=== PATIENT | female | born 1975 | race Two or more races ===

== ENCOUNTER 2024-12-25 09:20 | Day surgery (SDC) | payer MEDICAID ==
[2024-12-20 12:56] LABS: Hemoglobin 13.9 g/dL (12.2-16.2); Nucleated Red Blood Cells % 0.1 %
[2024-12-20 12:58] LABS: Hematocrit 42.5 % (36.0-46.0); Mean Corpuscular Hemoglobin 24.2 pg (28.0-32.0); Mean Corpuscular Volume 74.0 fL (80.0-100.0)
[2024-12-20 13:36] LABS: INR 1.03 (0.9-1.15); Partial Thromboplastin Time 29.6 SEC (24.5-34.5); Prothrombin Time 10.9 sec (9.3-11.8)
[2024-12-20 13:58] LABS: Alanine Aminotransferase 14 U/L (7-40); Alkaline Phosphatase 63 U/L (46-116); Anion Gap 11 (5-15); BUN/Creatinine Ratio 14.3 (10.0-20.0); Blood Urea Nitrogen 13 mg/dL (9-23); Calcium 9.6 mg/dL (8.7-10.4); Carbon Dioxide 28 mmol/L (20-31); Chloride 100 mmol/L (98-107); Glucose 90 mg/dL (74-106); Potassium 4.1 mmol/L (3.5-5.1); Sodium 139 mmol/L (136-145)
[2024-12-20 13:59] LABS: Bilirubin, Total 0.6 mg/dL (0.2-1.0)
[2024-12-20 14:00] LABS: Albumin 4.9 g/dL (3.2-4.8); Total Protein 8.3 g/dL (5.7-8.2)
[2024-12-20 15:11] LABS: Urine Protein, UAD Negative (Negative)
[~2024-12-25] VITALS: Ht 152.4 cm; Wt 42.6 kg
[~2024-12-25 09:20] MED LIST: ALPR0.5T PO; HYDR50CA2 PO; ZOLP10TA PO
[2024-12-25] MEDS ORDERED: PROPOFOL 10 MG/ML 20 ML IV ONE (10:34)
[2024-12-25] MEDS ORDERED: LIDOCAINE 1% INJ PF 5ML AMP ONE (10:34)
[2024-12-25] MEDS ORDERED: ONDANSETRON HCL 4 MG/2 ML VIAL ONE (10:34)
[2024-12-25] MEDS ORDERED: MIDAZOLAM HCL 2MG/2ML 2ml VIAL (1mg/ml) ONE (10:34)
[2024-12-25] MEDS ORDERED: fentaNYL CITRATE 100 MCG/2 ML VL ONE (10:34)
[2024-12-25] MEDS ORDERED: SODIUM CHLORIDE LOCK 10 ML ONE (10:34)
[2024-12-25] MEDS ORDERED: MORPHINE SULFATE 4 MG/ML SYR/VIAL IV PRN (11:00)
[2024-12-25] MEDS ORDERED: MORPHINE SULFATE INJ 2 MG/ml SYRG IV PRN (11:00)
[2024-12-25] MEDS ORDERED: KETOROLAC TROMETH 30 MG/ML 1ML VIAL IV ONE (11:00)
[2024-12-25] MEDS ORDERED: HYDROmorphone HCL 2 MG/ML VL/or syr IV PRN ×2 (11:00)
[2024-12-25] MEDS ORDERED: METOCLOPRAMIDE HCL 5MG/ml INJ 2ml VIAL IV PRN (11:00)
[2024-12-25] MEDS: ceFAZolin 2 GM/D5W50ml 50 ML IV ONE (11:15)
[2024-12-25] MEDS: LIDOCAINE 1% HCL (LOCAL ANESTH.) INJ 20ML MDV ONE (11:21)
[2024-12-25 11:36] VITALS: PULSE 56; RESP 56; TEMP 98.6; O2SAT 100
--- NOTE | 2024-12-25 11:39 | DVHOP2 ---
Operative Report - 2 Report Details Date: 12/25/24 Preop Diagnosis: 1. Right foot bunion 2. Right foot pain Postop Diagnosis: Same as preop Surgeon: Abelino Joshi MD Anesthesiologist: See anesthesia Anesthesia: Mac Implant: 6 2 K-wire Consent: The patient was informed of the risks and benefits of the procedure. These include but are not limited to complications of anesthesia, postoperative infection, incomplete relief of symptoms, recurrence of symptoms, damage to blood vessels, nerves and tendons, deep venous thrombosis, pulmonary embolism an d possible need for repeat surgery in the future. Complications: None Estimated Blood Loss: Minimal Fluids: See anesthesia Findings: Consistent with diagnosis Indications for Surgery: Right foot pain Name of Procedure Performed 1. Right foot MIS bunion (99582) Procedure Details Procedure Details: PRE-PROCEDURE INFORMATION: In the pre-op holding area, the extremity to be operated on was clearly marked and the patient verified correct laterality of the marking. The patient was transferred to the OR table and placed in a supine position. A timeout was performed in which identification of the correct carole ent, procedure, location, and materials was done. The right foot and leg were prepped and draped in normal sterile fashion. DESCRIPTION OF PROCEDURE: Attention was directed to the right 1st metatarsophalangeal joint where a stab incision was made at the neck of the 1st metatarsal. Care was taken to avoid damage the neurovascular and tendinous structures. Using intraoperative fluoroscopy and an MIS per, an osteotomy was then made at the neck of the 1st metatarsal. The metatarsal head was then shifted into position aligning the sesamoid bones over the fragment. Using a 6 2 K-wire, the wire was then driven down the shaft of the 1st metatarsal to hold the head in place until the osteotomy has healed. All surgical wounds were irrigated copiously with saline and closed in layers with the aforementioned suture material. A dry sterile dressing was placed on the surgical extremity. The patient was placed in a postop shoe POSTOPERATIVE INFORMATION: The patient tolerated the above noted procedure and anesthesia well and was transferred to the PACU with vital signs stable, and vascular status intact with capillary refill intact to all digits. Postoperative instructions reviewed in detail with the patient with written instructions provided. Patient will return to clinic in approximately 10-14 days for first postoperative visit. Patient has the number of the clinic and was instructed to call prior to that time should any problems, questions, or concerns arise. Condition Good Disposition Home Visit Coding Podiatry Date of Service if different f: Dec 25, 2024 Billing Provider: ABELINO JOSHI DPM Podiatry Common Visit Codes: PROCEDURE ONLY ABELINO JOSHI DPM Dec 25, 2024 11:39
[2024-12-25 12:30] VITALS: BP 112/61; PULSE 56; RESP 15; O2SAT 99
== END 2024-12-25 11:45 | disposition home or self-care (01) ==
LOC: SUR 09:20
PROVIDERS: ATTEND Podiatrist
DX: M21.611 Bunion of right foot (principal); M79.671 Pain in right foot; F41.9 Anxiety disorder, unspecified; Z98.890 Other specified postprocedural states
CPT/HCPCS: 28306; 36415; 80053; 81001; 81025; 85025; 85610; 85730; J0690; J2003; J2250; J2405; J2704; J3010